=== PATIENT | male | born 1960 | race Caucasian/White ===

== ENCOUNTER 2016-10-04 05:59 | Emergency (ER) | payer OTHER ==
[~2016-10-04] VITALS: Ht 180.3 cm; Wt 80.3 kg
[2016-10-04 07:31] LABS: BLOOD UREA NITROGEN 16 mg/dL (7-18)
[2016-10-04 07:37] LABS: ASPARTATE AMINO TRANSFERASE 75 U/L (15-37)
[2016-10-04 07:38] LABS: IS PT STATUS REG ER OR PRE ER? YES
[2016-10-04] MEDS ORDERED: OMNIPAQUE 350 MG/ML, 100ML BOTTLE ONE (08:33)
[2016-10-04] MEDS ORDERED: MAALOX/HYOSCYAMINE/LIDOCAINE 45 ML BTL ONE (09:36)
[2016-10-04] MEDS ORDERED: MAALOX/HYOSCYAMINE/LIDOCAINE 45 ML BTL PO ONE (10:00)
[2016-10-04 10:20] VITALS: BP 112/79
== END 2016-10-04 10:24 | disposition home or self-care (01) ==
LOC: ED 07:14
DX: K29.00 Acute gastritis without bleeding (principal); Z90.49 Acquired absence of other specified parts of digestive tract; Z88.5 Allergy status to narcotic agent
CPT/HCPCS: 36415; 74177; 80053; 81003; 83690; 84484; 85025; 93005; 99285; Q9967

== ENCOUNTER 2019-03-19 14:38 | Outpatient (CLI) | payer OTHER ==
[2019-03-19] MEDS ORDERED: OMNIPAQUE 350 MG/ML, 100ML BOTTLE ONE (16:15)
== END 2019-03-19 23:59 | disposition home or self-care (01) ==
LOC: RAD 14:38
PROVIDERS: ATTEND Nurse Practitioner
DX: N40.0 Benign prostatic hyperplasia without lower urinary tract symptoms (principal); N28.1 Cyst of kidney, acquired; Z90.49 Acquired absence of other specified parts of digestive tract
CPT/HCPCS: 74178; Q9967